=== PATIENT | female | born 2000 | race Hispanic/Latino ===

== ENCOUNTER 2020-10-13 16:05 | Emergency (ER) | payer SELFPAY ==
[~2020-10-13] VITALS: Ht 170.2 cm; Wt 140.6 kg
[2020-10-13] MEDS ORDERED: KETOROLAC TROMETHAMINE 60 MG/2 ML VIAL IM ONE (16:30)
[2020-10-13] MEDS ORDERED: DEXAMETHASONE SOD PHOS 10 MG/1 ML VIAL IM ONE (16:30)
[2020-10-13] MEDS ORDERED: ORPHENADRINE CITRATE 30 MG/ML VIAL IM ONE (16:30)
[2020-10-13 17:13] LABS: CLARITY,URINE SL CLOUDY (CLEAR); COLOR,URINE YELLOW (YELLOW); KETONES,URINE TRACE (NEGATIVE); LEUKOCYTE ESTERASE ,URINE NEGATIVE (NEGATIVE); NITRITE,URINE NEGATIVE (NEGATIVE); PROTEIN,URINE DIPSTICK NEGATIVE (NEGATIVE); URINE UROBILINOGEN 0.2 mg/dL (0.2 - 1)
[2020-10-13 17:26] LABS: RBC,URINE 0-5 /HPF (0-5)
[2020-10-13 17:27] LABS: BACTERIA,URINE MODERATE /HPF; EPITHELIAL CELLS,URINE MODERATE /LPF; TRANSITIONAL EPI CELLS,URINE FEW
[2020-10-13] MEDS ORDERED: MOTRIN200 MG PO (20:16)
[2020-10-13] MEDS ORDERED: PREDNISONE50 MG PO (20:16)
[2020-10-13] MEDS ORDERED: CYCLOBENZAPRINE5 MG PO (20:16)
[2020-10-13 20:51] VITALS: BP 132/70
== END 2020-10-13 20:53 | disposition home or self-care (01) ==
LOC: ER 16:08
DX: M54.41 Lumbago with sciatica, right side (principal); K21.9 Gastro-esophageal reflux disease without esophagitis
CPT/HCPCS: 72110; 81001; 81025; 99283; J1100; J1885

== ENCOUNTER 2023-09-08 20:19 | Emergency (ER) | payer SELFPAY ==
[~2023-09-08 20:19] MED LIST: AMOXICILLI400 MG/5 M PO; CYCLOBENZAPRINE5 MG PO; KETOROLAC TROME10 MG PO; MOTRIN200 MG PO; PREDNISONE50 MG PO
== END 2023-09-08 22:50 | disposition left against medical advice (07) ==
LOC: FSED 22:45
DX: M54.30 Sciatica, unspecified side (principal)